=== PATIENT | female | born 1985 | race African-American/Black ===

== ENCOUNTER 2020-05-27 17:22 | Emergency (ER) | payer OTHER ==
[~2020-05-27] VITALS: Ht 154.9 cm; Wt 108.9 kg
[~2020-05-27 17:22] MED LIST: HYDROCHLOROTHIA25 M2 PO; NORVASC10 MG PO; ONDANSETRON HCL4 M2 PO
[2020-05-27 19:40] VITALS: BP 155/103
== END 2020-05-27 19:41 | disposition home or self-care (01) ==
LOC: ER 17:22
DX: T14.8XXA Other injury of unspecified body region, initial encounter (principal); R07.89 Other chest pain; M25.511 Pain in right shoulder; M79.18 Myalgia, other site; R22.2 Localized swelling, mass and lump, trunk; I10 Essential (primary) hypertension; F17.210 Nicotine dependence, cigarettes, uncomplicated; Z79.899 Other long term (current) drug therapy; V89.2XXA Person injured in unspecified motor-vehicle accident, traffic, initial encounter; Y93.I9 Activity, other involving external motion; Y92.488 Other paved roadways as the place of occurrence of the external cause; Y99.8 Other external cause status